=== PATIENT | female | born 1995 | race African-American/Black ===

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

== ENCOUNTER 2017-11-04 16:23 | Emergency (ER) | payer BC ==
[2017-11-04] MEDS: IBUPROFEN 800 MG TAB PO (18:01)
== END 2017-11-04 19:08 | disposition home or self-care (01) ==
LOC: NEPK 16:23
DX: J01.10 Acute frontal sinusitis, unspecified (principal)
CPT/HCPCS: 87804; 87804-59; 99283